=== PATIENT | female | born 1985 ===

== ENCOUNTER 2020-09-17 12:39 | Outpatient (CLI) | payer MEDICAID ==
[~2020-09-17 12:39] MED LIST: ALUM-MAG HYDROXIDE-SIMETHICONE 200-200-20MG/5ML ORAL LIQD 30 ML PO ONE
[2020-09-17 13:02] VITALS: BP 114/66
[2020-09-17] MEDS ORDERED: LACTATED RINGERS 500 ML IV ONE (13:20)
== END 2020-09-17 14:10 | disposition home or self-care (01) ==
LOC: TRG 12:39 → APU 12:49 → TRG 14:10
PROVIDERS: ATTEND Obstetrics & Gynecology
DX: O26.892 Other specified pregnancy related conditions, second trimester (principal); R10.13 Epigastric pain; Z3A.26 26 weeks gestation of pregnancy
CPT/HCPCS: 59025